=== PATIENT | female | born 1930 | race Caucasian/White ===

== ENCOUNTER 2018-05-26 12:49 | Inpatient (IN) ==
[2018-05-26 13:55] LABS: Apearance,Urine Slightly Hazy (Clear); Bilirubin,Urine Negative (Negative); Blood, Urine Small mg/dL (Negative); Glucose,Urine (UA) Negative (Negative); Ketones,Urine 5 mg/dL (Negative); Mucus,Urine Occasional /LPF (Occasional); Nitrite,Urine Negative (Negative); Protein,Urine Negative; RBC,Urine <1 /HPF (0-4); Squamous Epithelial Cell,Urine Occasional /HPF (0-10); Urine Color Straw (Yellow); Urine Specific Gravity 1.002 (1.001-1.035); Urine Urobilinogen < 2.0 EU/DL (0.2-1.0); WBC,Urine 1 /HPF (0-6)
[2018-05-26] MEDS ORDERED: ONDANSETRON 4 MG/2 ML VIAL IV PRN (15:11)
[2018-05-26] MEDS: SODIUM CHLORIDE 0.9% 1,000 ML IV SCH (18:04)
[2018-05-26] MEDS: NYSTATIN 500,000 UNIT/5 ML UDCUP SWISH/SWAL SCH ×2 (18:07→20:55)
[2018-05-26] MEDS: MECLIZINE 25 MG TABLET PO SCH (20:55)
[2018-05-26] MEDS: DOCUSATE SODIUM 100 MG CAPSULE PO SCH (20:55)
[2018-05-27] MEDS: SODIUM CHLORIDE 0.9% 1,000 ML IV SCH ×2 (05:25→20:25)
[2018-05-27 06:29] LABS: Basophils % 0.6 % (0.0-0.8); Eosinophils # 0.2 10*3/uL (0.0-0.87); Eosinophils % 3.5 % (0.00-10.9); Hemoglobin 12.3 GM/DL (12.0-16.0); Immature Granulocytes % 0.3 %; Immature Granulocytes Absolute 0.02 #; Lymphocytes # 1.9 10*3/uL (1.4-4.0); Lymphocytes % 29.6 % (21.3-54.2); Mean Corpuscular HGB Conc 33.2 GM/DL (32-36); Mean Corpuscular Hemoglobin 32 PG (27-34); Mean Corpuscular Volume 96.4 FL (87-102); Mean Platelet Volume 10.8 FL (9.6-12.0); Monocytes # 0.4 10*3/uL (0.11-0.8); Monocytes % 6.1 % (1.7-12.7); Neutrophils # 3.9 10*3/uL (1.4-7.4); Neutrophils % 59.9 % (38.7-73.9); Platelet Count 255 T/CUMM (130-400); Red Blood Count 3.84 MC/CUMM (3.8-5.5); White Blood Count 6.6 T/CUMM (4-12)
[2018-05-27 07:01] LABS: Alanine Aminotransferase < 9 U/L (13-56); Albumin 2.4 G/DL (3.4-5.0); Alkaline Phosphatase 58 U/L (45-117); Aspartate Amino Transferase 10 U/L (0-37); Blood Urea Nitrogen 11 MG/DL (7-18); Calcium 8.1 MG/DL (8.5-10.1); Glucose 68 MG/DL (74-106); Osmolality,Calculated 284.7 MOS/KG (273-304); Potassium 2.8 MMOL/L (3.5-5.1); Sodium 145 MMOL/L (136-145); Total Protein 6.3 G/DL (6.4-8.3)
[2018-05-27] MEDS ORDERED: MAGNESIUM SULF RIDER 2 GM in PREMIX 1 EACH IV PRN (07:33)
[2018-05-27] MEDS ORDERED: MAGNESIUM SULF RIDER 4 GM in PREMIX 1 EACH IV PRN (07:33)
[2018-05-27] MEDS: POTASSIUM CHLORIDE RIDER 10 MEQ in PREMIX 1 EACH IV PRN ×3 (08:21→12:48)
[2018-05-27 09:50] LABS: PT Patient Result 10.9 SECS; Partial Thromboplastin Time 28.9 SECS (0-40)
[2018-05-27] MEDS ORDERED: ceFAZolin 1,000 MG in SYRINGE 1 EACH IV ONE (10:00)
[2018-05-27] MEDS ORDERED: BUPIVACAINE SPINAL 0.75% 2 ML AMP SPINAL ONE (10:19)
[2018-05-27] MEDS ORDERED: BISACODYL 10 MG SUPP RECTAL PRN (10:36)
[2018-05-27] MEDS ORDERED: MORPHINE 4 MG/1 ML VIAL IV PRN ×2 (10:36)
[2018-05-27] MEDS ORDERED: PROMETHAZINE 25 MG/1 ML VIAL IM PRN (10:36)
[2018-05-27] MEDS ORDERED: MAGNESIUM HYDROXIDE SUSP 30 ML UDCUP PO PRN (10:36)
[2018-05-27] MEDS ORDERED: TEMAZEPAM 7.5 MG CAPSULE PO PRN (10:36)
[2018-05-27] MEDS ORDERED: diphenhydrAMINE CAP 25 MG CAPSULE PO PRN (10:36)
[2018-05-27] MEDS ORDERED: LACTULOSE 20 GM/30 ML UDCUP PO PRN (10:36)
[2018-05-27] MEDS: POTASSIUM CHLORIDE 20 MEQ TABLET PO SCH (10:40)
[2018-05-27] MEDS: DOCUSATE SODIUM 100 MG CAPSULE PO SCH ×2 (10:40→20:26)
[2018-05-27] MEDS: NYSTATIN 500,000 UNIT/5 ML UDCUP SWISH/SWAL SCH ×4 (10:40→20:26)
[2018-05-27] MEDS: MULTIVITAMIN (CENTRUM) TABLET PO SCH (10:40)
[2018-05-27] MEDS: LORATADINE 10 MG TABLET PO SCH (10:40)
[2018-05-27] MEDS: MECLIZINE 25 MG TABLET PO SCH ×3 (10:40→20:26)
[2018-05-27] MEDS: TAMOXIFEN 10 MG TABLET PO SCH (10:41)
[2018-05-27] MEDS: PANTOPRAZOLE 40 MG TABLET PO SCH (10:41)
[2018-05-27] MEDS: LACTATED RINGERS 1,000 ML IV SCH (12:20)
[2018-05-27] MEDS ORDERED: fentaNYL 100 MCG/2 ML VIAL ONE (12:32)
[2018-05-27] MEDS ORDERED: MIDAZOLAM 2 MG/2 ML VIAL ONE (12:32)
[2018-05-27] MEDS ORDERED: TRANEXAMIC ACID 1,000 MG/10 ML VIAL ONE (12:33)
[2018-05-27] MEDS ORDERED: PROPOFOL 500 MG/50 ML BOTTLE IV ONE (12:33)
[2018-05-27] MEDS ORDERED: KETAMINE 500 MG/10 ML VIAL ONE (12:33)
[2018-05-27] MEDS ORDERED: SODIUM CHLORIDE 0.9% 100 ML IV ONE (12:34)
[2018-05-27] MEDS ORDERED: ACETAMINOPHEN 1,000 MG/100 ML VIAL IV ONE (12:34)
[2018-05-27] MEDS: ceFAZolin 1,000 MG in SYRINGE 1 EACH IV SCH ×2 (17:46→23:22)
[2018-05-28 06:08] LABS: Basophils # 0.1 10*3/uL (0.0-0.2); Basophils % 0.5 % (0.0-0.8); Eosinophils # 0.1 10*3/uL (0.0-0.87); Eosinophils % 1.4 % (0.00-10.9); Hematocrit 36.6 VOL% (35.7-47.0); Immature Granulocytes % 0.2 %; Immature Granulocytes Absolute 0.02 #; Lymphocytes # 1.3 10*3/uL (1.4-4.0); Lymphocytes % 14.4 % (21.3-54.2); Mean Corpuscular HGB Conc 32.8 GM/DL (32-36); Mean Corpuscular Hemoglobin 32 PG (27-34); Mean Corpuscular Volume 98.1 FL (87-102); Mean Platelet Volume 9.9 FL (9.6-12.0); Monocytes # 0.5 10*3/uL (0.11-0.8); Monocytes % 5.9 % (1.7-12.7); Neutrophils # 7.2 10*3/uL (1.4-7.4); Neutrophils % 77.6 % (38.7-73.9); Platelet Count 216 T/CUMM (130-400); Red Blood Count 3.73 MC/CUMM (3.8-5.5); Red Cell Distribution Width 12.6 % (9.3-17.3); White Blood Count 9.2 T/CUMM (4-12)
[2018-05-28] MEDS: FONDAPARINUX 2.5 MG/0.5 ML SYRINGE SUBCUT SCH (06:25)
[2018-05-28 06:27] LABS: Albumin 2.6 G/DL (3.4-5.0); Bilirubin,Total 0.9 MG/DL (0.2-1.0); Calcium 8.2 MG/DL (8.5-10.1); Osmolality,Calculated 282.8 MOS/KG (273-304); Potassium 2.9 MMOL/L (3.5-5.1); Total Protein 6.4 G/DL (6.4-8.3)
[2018-05-28] MEDS: SODIUM CHLORIDE 0.9% 1,000 ML IV SCH (07:07)
[2018-05-28] MEDS: NYSTATIN 500,000 UNIT/5 ML UDCUP SWISH/SWAL SCH ×4 (09:04→20:24)
[2018-05-28] MEDS: MULTIVITAMIN (CENTRUM) TABLET PO SCH (09:05)
[2018-05-28] MEDS: PANTOPRAZOLE 40 MG TABLET PO SCH (09:05)
[2018-05-28] MEDS: LORATADINE 10 MG TABLET PO SCH (09:05)
[2018-05-28] MEDS: POTASSIUM CHLORIDE 20 MEQ TABLET PO SCH (09:05)
[2018-05-28] MEDS: TAMOXIFEN 10 MG TABLET PO SCH (09:05)
[2018-05-28] MEDS: MECLIZINE 25 MG TABLET PO SCH ×3 (09:05→20:24)
[2018-05-28] MEDS: DOCUSATE SODIUM 100 MG CAPSULE PO SCH ×2 (09:06→20:24)
[2018-05-28] MEDS: SODIUM CHLOR 0.9% KCL 20 MEQ 20 MEQ/1,000 ML BAG IV SCH (17:00)
[2018-05-29] MEDS: FONDAPARINUX 2.5 MG/0.5 ML SYRINGE SUBCUT SCH (05:49)
[2018-05-29] MEDS: LACTATED RINGERS 1,000 ML IV SCH (06:25)
[2018-05-29 07:26] LABS: Albumin 2.2 G/DL (3.4-5.0); Bilirubin,Total 0.9 MG/DL (0.2-1.0); Calcium 8.2 MG/DL (8.5-10.1); Osmolality,Calculated 278.3 MOS/KG (273-304); Potassium 3.3 MMOL/L (3.5-5.1); Total Protein 5.9 G/DL (6.4-8.3)
[2018-05-29] MEDS: DOCUSATE SODIUM 100 MG CAPSULE PO SCH ×2 (09:37→20:50)
[2018-05-29] MEDS: LORATADINE 10 MG TABLET PO SCH (09:37)
[2018-05-29] MEDS: NYSTATIN 500,000 UNIT/5 ML UDCUP SWISH/SWAL SCH ×4 (09:37→20:50)
[2018-05-29] MEDS: POTASSIUM CHLORIDE 20 MEQ TABLET PO SCH (09:37)
[2018-05-29] MEDS: TAMOXIFEN 10 MG TABLET PO SCH (09:37)
[2018-05-29] MEDS: PANTOPRAZOLE 40 MG TABLET PO SCH (09:37)
[2018-05-29] MEDS: MULTIVITAMIN (CENTRUM) TABLET PO SCH (09:37)
[2018-05-29] MEDS: MECLIZINE 25 MG TABLET PO SCH ×3 (09:37→20:50)
[2018-05-29] MEDS ORDERED: TUBERCULIN SKIN TEST 0.1 ML SYRINGE INTRADERM ONE (13:10)
[2018-05-29] MEDS: SODIUM CHLOR 0.9% KCL 20 MEQ 20 MEQ/1,000 ML BAG IV SCH (17:10)
[2018-05-29] MEDS: ZINC OXIDE PASTE 113 GM TUBE TOP SCH (20:50)
[2018-05-30 05:48] LABS: Potassium 3.8 MMOL/L (3.5-5.1)
[2018-05-30] MEDS: FONDAPARINUX 2.5 MG/0.5 ML SYRINGE SUBCUT SCH (05:49)
[2018-05-30] MEDS: PANTOPRAZOLE 40 MG TABLET PO SCH (09:18)
[2018-05-30] MEDS: TAMOXIFEN 10 MG TABLET PO SCH (09:18)
[2018-05-30] MEDS: DOCUSATE SODIUM 100 MG CAPSULE PO SCH (09:18)
[2018-05-30] MEDS: MULTIVITAMIN (CENTRUM) TABLET PO SCH (09:18)
[2018-05-30] MEDS: MECLIZINE 25 MG TABLET PO SCH ×2 (09:18→15:49)
[2018-05-30] MEDS: NYSTATIN 500,000 UNIT/5 ML UDCUP SWISH/SWAL SCH ×2 (09:18→12:30)
[2018-05-30] MEDS: ZINC OXIDE PASTE 113 GM TUBE TOP SCH (09:19)
[2018-05-30] MEDS: LORATADINE 10 MG TABLET PO SCH (09:19)
[2018-05-30] MEDS: POTASSIUM CHLORIDE 20 MEQ TABLET PO SCH (09:19)
[2018-05-30] MEDS: SODIUM CHLOR 0.9% KCL 20 MEQ 20 MEQ/1,000 ML BAG IV SCH (13:06)
[2018-05-30 17:15] VITALS: BP 95/56
== END 2018-05-30 17:30 | disposition swing bed (61) | DRG 470 ==
LOC: EDBD → EDUNIT# → N.ED 12:49 → N.EDINP 15:11 → N.3E 16:36
PROVIDERS: ADMIT Internal Medicine; ATTEND Internal Medicine